=== PATIENT | male | born 1995 | race Hispanic/Latino ===

== ENCOUNTER 2022-02-20 19:02 | Emergency (ER) | payer SELFPAY ==
[2022-02-20] MEDS ORDERED: Proparacaine 0.5% Opth 15 ML BOT ONE (19:57)
[2022-02-20] MEDS ORDERED: Fluorescein Opthalmic Strip ONE (19:57)
== END 2022-02-20 22:00 | disposition left against medical advice (07) ==
LOC: ERS 19:02
DX: Z53.21 Procedure and treatment not carried out due to patient leaving prior to being seen by health care provider (principal)

== ENCOUNTER 2025-03-04 19:20 | Emergency (ER) | payer SELFPAY ==
[2025-03-04] MEDS ORDERED: Acetaminophen 500 MG TAB ONE (20:23)
[2025-03-04] MEDS ORDERED: Ketorolac Tromethamine 30 MG (1 mL) VIAL ONE (20:24)
== END 2025-03-04 22:44 | disposition home or self-care (01) ==
LOC: ERS 19:20
DX: L05.91 Pilonidal cyst without abscess (principal)
CPT/HCPCS: 76999; 96372; J1885